=== PATIENT | male | born 1990 | race Two or more races ===

== ENCOUNTER 2020-03-23 01:21 | Emergency (ER) | payer MEDICAID, OTHER ==
[~2020-03-23] VITALS: Ht 177.8 cm; Wt 90.0 kg
[2020-03-23 01:22] VITALS: BP 153/88
[2020-03-23] MEDS ORDERED: LIDOCAINE-MPF 1%, 5ML ONE (01:34)
[2020-03-23] MEDS ORDERED: DIPH,PERTUSS(ACELL),TET VAC/PF 0.5 ML IM-VACC ONE ×2 (01:39→02:00)
[2020-03-23] MEDS ORDERED: LIDOCAINE 1%, 10ML INFIL ONE (02:00)
[2020-03-23] MEDS ORDERED: NEOSPORIN OINT. PKT 1 PACKET ONE (02:55)
== END 2020-03-23 03:04 | disposition home or self-care (01) ==
LOC: ED 02:30
DX: S01.81XA Laceration without foreign body of other part of head, initial encounter (principal); W22.8XXA Striking against or struck by other objects, initial encounter; Y93.89 Activity, other specified; Y92.488 Other paved roadways as the place of occurrence of the external cause; Y99.8 Other external cause status
CPT/HCPCS: 12051; 70486; 90471; 90715; 99284